=== PATIENT | male | born 1990 | race Caucasian/White ===

== ENCOUNTER 2017-01-29 22:51 | Emergency (ER) ==
[2017-01-29 23:02] VITALS: BP 141/95; TEMP 100; BMI 33.6
[2017-01-29] MEDS ORDERED: LEVAQUIN PO STA (23:11)
[2017-01-29] MEDS ORDERED: DECADRON 4 MG/ML SDV IM STA (23:11)
[2017-01-29] MEDS ORDERED: TORADOL IM STA (23:11)
--- NOTE | 2017-01-30 00:03 | CT ---
Exam: CT sinuses without contrast History: Sinus pain Technique: [address] paranasal sinuses with multiplanar reformations FINDINGS: The paranasal sinuses are nearly entirely clear. There is trace mucoperiosteal thickenin g of the right maxillary sinus. Mastoid air cells and middle ears are clear. Draining sinus ostia are patent. Nasal airway shows mucosal hypertrophy on the right. No polyps or significant bony abn ormality. The orbits are intact. Impression: 1. Minimal mucoperiosteal thickening of the right maxillary sinus. Minor mucosal swelling of the r ight nasal airway.
--- NOTE | 2017-01-30 00:12 | ED.PDOC ---
General ED Provider: Dr. MYNOR GAO-ER Chief Complaint: Headache Stated Complaint: my sinuses are congested and they hurt Time Seen by Physician: 22:55 Mode of Arrival: Walk-In Information Source: Patient Exam Limitations: No limitations Nursing and Triage Documentation Reviewed and Agree: Yes Respiratory Complaint Exam - Respiratory Complaint/Exam Onset/Duration: 24hrs Symptoms Are: Still present Timing: Constant Initial Severity: Mild Current Severity: Mild Location: Nose Character: Reports: Non-productive cough Aggravating: Reports: URI Alleviating: Reports: None Associated Signs and Symptoms: Reports: Fever, URI, Nasal congestion, Sinus discomfort, Sore throat. Denies: Rapid breathing, Dyspnea, Chills, Chest pain, Pleuritic chest pain, Wheezing, Hemoptysis, Dizziness, Calf pain, Calf swelling , Edema, Hoarseness, Vomiting, Weight loss, Decreased oral intake, Increased thirst, Increased appetite, Increased urination History of Healthcare-Acquired Pneumonia: No Related Surgical History: Reports: None Home Oxygen Use: No Recent Stress Test: No Recent Echo/LV Function: No Current Antibiotic Use: No Current Asthma Medication Use: No Respiratory Distress: None Inadequate Respiratory Effort: No Dysphagia Present: No Stridor Present: No JVD Present: No Accessory Muscle Use: No Retractions: Not Present Diminished Breath Sounds: No Sinus Tenderness: Frontal, Maxillary Grunting Respirations: No Kussmaul Respirations: No Differential Diagnoses: Sinusitis, URI Review of Systems - Review Of Systems Constitutional: Reports: No symptoms Eyes: Reports: No symptoms Ears, Nose, Mouth, Throat: Reports: Nose pain, Nose discharge Respiratory: Reports: No symptoms Cardiac: Reports: No symptoms GI: Reports: No symptoms : Reports: No symptoms Musculoskeletal: Reports: No symptoms Skin: Reports: No symptoms Neurological: Reports: No symptoms Endocrine: Reports: No symptoms Hematologic/Lymphatic: Reports: No symptoms All Other Systems: Reviewed and Negative Past Medical History - Past Medical History Previously Healthy: Yes Endocrine: Reports: None Cardiovascular: Reports: None Respiratory: Reports: Asthma, Pneumonia (OLD RECORD 04/22/15) Hematological: Reports: None, Other (OLD RECORD ABSCESS LEFT THIGH) Gastrointestinal: Reports: None Genitourinary: Reports: None Neuro/Psych: Reports: None Musculoskeletal: Reports: None, Joint Pain (OLD RECORD R KNEE R THUMB INJURIES) Cancer: Reports: None Other Pertinent Past Medical History: SOA - Surgical History General Surgical History: Reports: Cholecystectomy, Tonsillectomy, Other (Cyst Removed From Back, abscess drained) - Family History Family History: Reports: Other (child in home also has pneumonia) - Social History Smoking Status: Current every day smoker Hx Substance Use: Yes (medicinal marijuana) Alcohol Screening: None Lives: With family - Immunizations Tetanus Shot up to Date: No (unsure) Physical Exam - Physical Exam Appearance: Well-appearing, No pain distress, Well-nourished Eyes: HUY, EOMI, Conjunctiva clear ENT: Rhinorrhea Neck: Supple Respiratory: Airway patent, Breath sounds clear, Breath sounds equal, Respirations nonlabored Cardiovascular: RRR, Pulses normal, No rub, No murmur GI/: Soft Musculoskeletal: Normal strength Skin: Warm, Dry, Normal color Neurological: Sensation intact, Motor intact, Reflexes intact, Cranial nerves intact, Alert, Oriented Psychiatric: Affect appropriate Interpretation - Radiology Interpretation Radiology Interpretation By: Radiologist Radiology Results: Positive Exam Interpreted: CT Scan Re-Evaluation - Re-Evaluation Time of Re-Evaluation: 00:13 Status: Improved Vital Signs Stable: Yes Pain Level: 1 Appearance: NAD Lungs: Clear Skin: Warm and Dry Neuro: Alert and Oriented X3 CV: RRR Critical Care Note - Critical Care Note Total Time (mins): 0 Course - Course Orders, Labs, Meds: Orders Category Date Time Status Dexamethasone 4 mg/ml Inj [Decadron 4 mg/ml Sdv] MEDS 01/29/17 23:11 Discontinued 4 mg IM ONCE STA Ketorolac Tromethamine [Toradol] MEDS 01/29/17 23:11 Discontinued 60 mg IM ONCE STA Levofloxacin [Levaquin] MEDS 01/29/17 23:11 Discontinued 500 mg PO ONCE STA CT SINUSES W/O CONTRAST Stat RADS 01/29/17 23:11 Completed Medications Discontinued Medications Generic Name Dose Route Start Last Admin Trade Name Freq PRN Reason Stop Dose Admin Dexamethasone Sodium Phosphate 4 mg 01/29/17 23:11 01/29/17 23:20 Decadron 4 Mg/Ml Sdv IM 01/29/17 23:12 4 mg ONCE STA Administration Ketorolac Tromethamine 60 mg 01/29/17 23:11 01/29/17 23:20 Toradol IM 01/29/17 23:12 60 mg ONCE STA Administration Levofloxacin 500 mg 01/29/17 23:11 01/29/17 23:19 Levaquin PO 01/29/17 23:12 500 mg ONCE STA Administration Vital Signs: Temp Pulse Resp BP Pulse Ox 01/29/17 22:54 100.0 F H 98 H 20 141/95 H 98 Departure - Departure Time of Disposition: 00:13 Disposition: HOME SELF-CARE Discharge Problem: Sinusitis Qualifiers: Sinusitis location: unspecified location Chronicity: acute Recurrence: not specified as recurrent Qualifier Code: (J01.90) Acute sinusitis, unspecified Instructions: Sinusitis (ED) Condition: Good Pt referred to PMD for follow-up: Yes Additional Instructions: levaquin 500mg #10--flonase nasal spray one puff each nostril bid --f/u with pcp in 48hrs if not improving--use motrin for pain or fever Allergies/Adverse Reactions: Allergies Penicillins Adverse Reaction (Verified 01/29/17 22:53) Home Medications: Ambulatory Orders Albuterol Sulfate [Albuterol Sulfate Hfa] 8.5 gm IH QID PRN 02/25/16 Naproxen [Naprosyn] 500 mg PO Q12HR PRN #30 tablet 04/18/16 Ibuprofen 800 mg PO BID PRN 04/25/16 Disposition Discussed With: Patient
== END 2017-01-30 00:20 | disposition home or self-care (01) ==
LOC: ED 22:51
DX: J01.90 Acute sinusitis, unspecified (principal); F17.210 Nicotine dependence, cigarettes, uncomplicated
CPT/HCPCS: 96372; 99282

== ENCOUNTER 2017-06-06 19:37 | Emergency (ER) ==
[2017-06-06 19:39] VITALS: BMI 33.3
[2017-06-06 19:44] VITALS: BP 156/98; TEMP 98.8
[2017-06-06] MEDS ORDERED: CLEOCIN PO STA (19:55)
--- NOTE | 2017-06-06 19:56 | ED.PDOC ---
General ED Provider: Dr. KMUAR PIERCE Chief Complaint: Abscess Stated Complaint: Patient has spot on the right upper thigh, swollen red, tender ,. - Time Seen by Physician: 19:53 Mode of Arrival: Walk-In Information Source: Patient Nursing and Triage Documentation Reviewed and Agree: Yes Skin Complaint Exam - Skin/Soft Tissue Complaint/Exam Symptoms Are: Still present Timing: Constant Initial Severity: Mild Current Severity: Mild Character: Reports: Redness, Swelling, Raised, Painful Aggravating: Reports: Touch Alleviating: Reports: None Associated Signs and Symptoms: Denies: Fever, Chills, Itching, Drainage, Bruising, Tenderness, Red streaks, Joint swelling Related Surgical History: Reports: None Recent Exposure to Others w/Similar Symptoms: No Skin Findings: Present: Erythema, Induration, Fluctuant mass Joint Tenderness Present: No Differential Diagnoses: Abscess, Cellulitis Review of Systems - Review Of Systems Constitutional: Reports: No symptoms Eyes: Reports: No symptoms Ears, Nose, Mouth, Throat: Reports: No symptoms Respiratory: Reports: No symptoms Cardiac: Reports: No symptoms GI: Reports: No symptoms : Reports: No symptoms Musculoskeletal: Reports: No symptoms Skin: Reports: No symptoms Neurological: Reports: No symptoms Endocrine: Reports: No symptoms Hematologic/Lymphatic: Reports: No symptoms All Other Systems: Reviewed and Negative Past Medical History - Past Medical History Previously Healthy: Yes Endocrine: Reports: None Cardiovascular: Reports: None Respiratory: Reports: Asthma, Pneumonia (OLD RECORD 04/22/15) Hematological: Reports: None, Other (OLD RECORD ABSCESS LEFT THIGH) Gastrointestinal: Reports: None Genitourinary: Reports: None Neuro/Psych: Reports: None Musculoskeletal: Reports: None, Joint Pain (OLD RECORD R KNEE R THUMB INJURIES) Cancer: Reports: None Other Pertinent Past Medical History: SOA - Surgical History General Surgical History: Reports: Cholecystectomy, Tonsillectomy, Other (Cyst Removed From Back, abscess drained) - Family History Family History: Reports: Other (child in home also has pneumonia) - Social History Smoking Status: Current every day smoker, Light tobacco smoker Smoking Cessation Counseling Time: > 3 min - 10 min Hx Substance Use: No Alcohol Screening: None Physical Exam - Physical Exam Appearance: Well-appearing, No pain distress, Well-nourished Eyes: HUY, EOMI, Conjunctiva clear ENT: Ears normal, Nose normal, Oropharynx normal Respiratory: Airway patent, Breath sounds clear, Breath sounds equal, Respirations nonlabored Cardiovascular: RRR, Pulses normal, No rub, No murmur GI/: Soft, Nontender, No masses, Bowel sounds normal, No Organomegaly Musculoskeletal: Normal strength, ROM intact, No edema, No calf tenderness Skin: Warm, Dry, Normal color Neurological: Sensation intact, Motor intact, Reflexes intact, Cranial nerves intact, Alert, Oriented Psychiatric: Affect appropriate, Mood appropriate Critical Care Note - Critical Care Note Total Time (mins): 0 Course - Course Vital Signs: Temp Pulse Resp BP Pulse Ox 06/06/17 19:39 98.8 F 93 H 20 156/98 H 95 Departure - Departure Time of Disposition: 19:55 Disposition: HOME SELF-CARE Discharge Problem: Abscess Instructions: Abscess (ED) Condition: Good Pt referred to PMD for follow-up: Yes Additional Instructions: Hot compress Take Probiotics Prescriptions: Clindamycin HCl 300 mg PO TID #15 capsule Allergies/Adverse Reactions: Allergies Penicillins Adverse Reaction (Verified 06/06/17 19:44) Home Medications: Ambulatory Orders Albuterol Sulfate [Albuterol Sulfate Hfa] 8.5 gm IH QID PRN 02/25/16 Clindamycin HCl 300 mg PO TID #15 capsule 06/06/17 Disposition Discussed With: Patient
== END 2017-06-06 20:23 | disposition home or self-care (01) ==
LOC: ED 19:37
DX: L02.415 Cutaneous abscess of right lower limb (principal); F17.210 Nicotine dependence, cigarettes, uncomplicated
CPT/HCPCS: 99282

== ENCOUNTER 2018-02-02 19:07 | Emergency (ER) ==
[2018-02-02 19:17] VITALS: BP 133/82; TEMP 99.1; BMI 31.6
[2018-02-02] MEDS ORDERED: MOTRIN PO STA (19:33)
--- NOTE | 2018-02-02 19:37 | ED.PDOC ---
General ED Provider: Dr. MICKY FRAIRE Chief Complaint: Non-specific Complaint Stated Complaint: Fell while [place] skating yesterday. Has sustained injury to the left lower rib area . Also has abrasions to the left elbow which are healing but has no pain there. Took Motrin early today. Rates the pain as severe. Time Seen by Physician: 19:35 Mode of Arrival: Walk-In Information Source: Patient Nursing and Triage Documentation Reviewed and Agree: Yes Does patient meet sepsis criteria?: No System Inflammatory Response Syndrome: Not Applicable Sepsis Protocol: For patient's 13 years and over: Temp is 96.8 and below OR 101 and greater Pulse >90 BPM Resp >20/minute Acutely Altered Mental Status Are patient's symptoms suggestive of a new infection, such as: -Pneumonia -Skin, Soft Tissue -Endocarditis -UTI -Bone, Joint Infection -Implantable Device -Acute Abdominal Infection -Wound Infection -Meningitis -Blood Stream Catheter Infection -Unknown Review of Systems - Review Of Systems Constitutional: Reports: No symptoms Eyes: Reports: No symptoms Ears, Nose, Mouth, Throat: Reports: No symptoms Respiratory: Reports: No symptoms Cardiac: Reports: Chest pain (Left lateral chest wall area ) GI: Reports: No symptoms : Reports: No symptoms Musculoskeletal: Reports: Other (Left rib pain area ) Skin: Reports: No symptoms Neurological: Reports: Anxiety Endocrine: Reports: No symptoms Hematologic/Lymphatic: Reports: No symptoms All Other Systems: Reviewed and Negative Past Medical History - Past Medical History Previously Healthy: Yes Endocrine: Reports: None Cardiovascular: Reports: None Respiratory: Reports: Asthma, Pneumonia (OLD RECORD 04/22/15) Hematological: Reports: None, Other (OLD RECORD ABSCESS LEFT THIGH) Gastrointestinal: Reports: None Genitourinary: Reports: None Neuro/Psych: Reports: None Musculoskeletal: Reports: Joint Pain (OLD RECORD R KNEE R THUMB INJURIES) Cancer: Reports: None Other Pertinent Past Medical History: SOA - Surgical History General Surgical History: Reports: Cholecystectomy, Tonsillectomy, Other (Cyst Removed From Back, abscess drained) - Family History Family History: Reports: Other (child in home also has pneumonia) - Social History Smoking Status: Current every day smoker, Light tobacco smoker Hx Substance Use: No Alcohol Screening: None - Immunizations Tetanus Shot up to Date: No Physical Exam - Physical Exam Appearance: Well-appearing, Obese Pain Distress: Moderate Neck: Supple Respiratory: Airway patent, Breath sounds clear, Breath sounds equal, Respirations nonlabored Cardiovascular: RRR, Pulses normal, No rub, No murmur GI/: Soft, Nontender, No masses, Bowel sounds normal, No Organomegaly Musculoskeletal: Normal strength, ROM intact, No edema (Left chest wall tenderness to palpation. ) Skin: Warm, Dry Neurological: Cranial nerves intact, Alert, Oriented Interpretation - Radiology Interpretation Radiology Interpretation By: ED Physician Radiology Results: Negative Exam Interpreted: CXR Critical Care Note - Critical Care Note Total Time (mins): 0 Course - Course Orders, Labs, Meds: Orders Category Date Time Status Diphth,Pertuss(Acell),Tet Vac [Boostrix] MEDS 02/02/18 19:44 Discontinued 0.5 ml IM .ONCE ONE Ibuprofen [Motrin] MEDS 02/02/18 19:33 Discontinued 800 mg PO ONCE STA RIBS, W/PA CHEST LEFT Stat RADS 02/02/18 19:33 Completed Medications Discontinued Medications Generic Name Dose Route Start Last Admin Trade Name Freq PRN Reason Stop Dose Admin Diphtheria/Pertussis/Tetanus Vacc 0.5 ml 02/02/18 19:44 02/02/18 19:50 Boostrix IM 02/02/18 19:45 0.5 ml .ONCE ONE Administration Ibuprofen 800 mg 02/02/18 19:33 02/02/18 19:43 Motrin PO 02/02/18 19:34 800 mg ONCE STA Administration Vital Signs: Temp Pulse Resp BP Pulse Ox 02/02/18 19:10 99.1 F 84 20 133/82 97 Departure - Departure Time of Disposition: 20:40 Disposition: HOME SELF-CARE Discharge Problem: Chest wall injury Qualifiers: Encounter type: initial encounter Qualified Code(s): S29.9XXA - Unspecified injury of thorax, initial encounter Instructions: Chest Wall Pain (ED) Condition: Good Pt referred to PMD for follow-up: Yes IPMP verified?: No Additional Instructions: Take Medications as precribed Follow up with PCP In 3 days Prescriptions: Ibuprofen [Motrin] 600 mg PO Q6H PRN #30 tablet PRN Reason: Analgesia Allergies/Adverse Reactions: Allergies Penicillins Adverse Reaction (Verified 02/02/18 19:16) Anaphylaxis Home Medications: Ambulatory Orders Albuterol Sulfate [Albuterol Sulfate Hfa] 8.5 gm IH QID PRN 02/25/16 Dicyclomine HCl [Bentyl] 10 mg PO QID PRN 02/02/18 Ibuprofen [Motrin] 600 mg PO Q6H PRN #30 tablet 02/02/18 Disposition Discussed With: Patient, Family Trauma/Injury Complaint Exam - Truncal Trauma Complaint/Exam Location of Pain: Reports: Left, Chest Onset: 1 day Symptoms Are: Still present Onset of Pain: Reports: Immediate Initial Severity: Severe Current Severity: Moderate Mechanism: Reports: Blunt trauma, Fall Aggravating: Reports: Movement, Deep breathing Alleviating: Reports: OTC meds (only partially ) Associated Signs and Symptoms: Reports: Chest pain. Denies: Short of air, Cough , Hematuria, Abdominal pain, Fever, Nausea, Vomiting Related History: Denies: Similar episode, Occupational injury, Anticoagulants, Prior rib fracture, COPD, Heart Disease, Aortic Aneurysm Related Surgical History: Reports: None Immobilization Removed Post Exam: No Vertebral Tenderness Present: No Vertebral Deformity Present: No Trachial Deviation Present: No JVD Present: No Crepitus Present: No Diminished Breath Sounds: No Muffled Heart Sounds Present: No Paradoxical Chest Wall Movement Present: No Abdominal Guarding Present: No Abdominal Rigidity Present: No Referred Shoulder Pain (Kehr's Sign) Present: No Skin Findings: Present: Abrasion (Left elbow ) Differential Diagnoses: Chest Wall Contusion, Rib Fracture
[2018-02-02] MEDS ORDERED: BOOSTRIX IM ONE (19:44)
--- NOTE | 2018-02-02 20:46 | DI ---
EXAM: Four views of the chest and left ribs COMPARISON: Chest x-ray from 05/05/2015. HISTORY: Rib pain. FINDINGS: Chest x-ray reveals no evidence for pneumothorax or effusion or lobar consolidation or lung contusion. The ribs demonstrate no evidence for displaced fracture. IMPRESSION: No displaced rib fracture.
== END 2018-02-02 20:45 | disposition home or self-care (01) ==
LOC: ED 19:07
DX: S29.9XXA Unspecified injury of thorax, initial encounter (principal); S50.312A Abrasion of left elbow, initial encounter; W01.0XXA Fall on same level from slipping, tripping and stumbling without subsequent striking against object, initial encounter; Y93.51 Activity, roller skating (inline) and skateboarding
CPT/HCPCS: 90471; 90715; 99282

== ENCOUNTER 2019-02-19 14:09 | Outpatient (POV) | END 2019-02-19 17:00 | LOC: OUTPT 14:09 | PROVIDERS: ATTEND Otolaryngology | DX: H91.90 Unspecified hearing loss, unspecified ear (principal) | CPT/HCPCS: 92557; 92567 ==